=== PATIENT | female | born 1945 | race Caucasian/White ===

== ENCOUNTER → 2016-09-01 | Outpatient (CLI) | payer OTHER ==
[~2016-09-01] MED LIST: AMITRIPTYLINE H50 MG PO; CETIRIZINE HCL10 MG PO; FISH OIL 1,2001 EAC1 PO; IMITREX PO; PROPRANOLOL HCL10 MG PO; RIBOFLAVIN PO; SIMVASTATIN40 MG PO; SYNTHROID0.15 MG PO; TOPAMAX PO; VIT B-12 PO; VITAMIN D31000 UNI1 PO
--- NOTE | ~2016-09-01 | US6 ---
[facility] A Service of [facility] RADIOLOGY TEXT RESULTS PATIENT: ERICKA LAM LOCATION: SGUS : 45 UNIT #: [id number] AGE: [address]: Kaylee Deleon MD SEX: F ORDER DR: [id number] [place] [id number] O MR#: [id number] Acc #: [id number] NAME: ERICKA LAM : 1945 SEX: F STUDY DATE/TIME: 09/01/2016 8:43 UNIT: SGUS ROOM: STUDY DESCRIPTION: US Abdominal Limited Attending Physician: Kaylee Deleon M.D. Referring Physician: Kaylee Deleon M.D. Ordering Physician: Kaylee Deleon M.D. Primary Care Physician: Kaylee Deleon M.D. MEDICAL IMAGING REPORT This report is preliminary unless electronic signature is present. EXAM Right upper quadrant abdominal ultrasound INDICATIONS Hepatitis. Elevated liver enzyme levels. PROCEDURE Paulino-scale and Doppler imaging right upper quadrant of the abdomen COMPARISON 10/15/2011 FINDINGS Visualized portions of pancreas are unremarkable. Liver has diffusely increased echotexture. No liver mass is seen on submitted images. Liver measures 18.2 cm. Right kidney measures 11.1 cm. No hydronephrosis. Unremarkable gallbladder. Common duct measures 4 mm. IMPRESSION 1. Increased liver echotexture most in keeping with steatosis. 2. Otherwise negative right upper quadrant ultrasound. 1. Dictated by... Osiel Yost M.D. THIS IS AN ELECTRONICALLY VERIFIED REPORT Osiel Yost M.D. at 09/02/2016 7:19 AM EUGENIA/july TD: 09/01/2016 13:17 JOB #: [id number] [facility] A Service [facility] RADIOLOGY TEXT RESULTS PATIENT: ERICKA LAM LOCATION: SG : 45 UNIT #: [id number] AGE: [address]: Kaylee Deleon MD SEX: F ORDER DR: MEDICAL IMAGING REPORT Page 1 of 1
== END | disposition home or self-care (01) ==
LOC: SGUS 08:34
DX: B15.9 Hepatitis A without hepatic coma (principal)
CPT/HCPCS: 76705

== ENCOUNTER → 2016-09-11 | Outpatient (CLI) | payer OTHER ==
--- NOTE | ~2016-09-11 | EKG ---
PATIENT: ERICKA LAM UNIT #: [id number] Ventricular Rate: 64 BPM Atrial Rate: 64 BPM P-R Interval: 222 ms QRS Duration: 74 ms Q-T Interval: 422 ms QTC Calculation(Bezet): 435 ms P Doerun: 21 degrees Calculated R Doerun: 76 degrees Calculated T Doerun: 69 degrees Diagnosis Line: Sinus rhythm with 1st degree A-V block Diagnosis Line: Borderline ECG Diagnosis Line: No previous ECGs available Diagnosis Line: Confirmed by ANAID DICKERSON MD ([id number]) on Diagnosis Line: 09/12/2016 6:44:35 AM INTERPRETING MD: JADON
== END | disposition home or self-care (01) ==
LOC: CEKG 09:04
DX: R00.2 Palpitations (principal)
CPT/HCPCS: 93005